=== PATIENT | female | born 1985 | race African-American/Black ===

== ENCOUNTER 2017-02-27 01:36 | Emergency (ER) | payer MEDICAID ==
[2017-02-27] MEDS ORDERED: KETOROLAC 30 MG/ML VIAL IVP ONE (01:58)
[2017-02-27] MEDS ORDERED: 0.9 % SODIUM CHLORIDE 1,000 ML BAG IV ONE (01:58)
[2017-02-27] MEDS ORDERED: MORPHINE SULFATE 5 MG/ML PFS IVP ONE (01:58)
--- NOTE | 2017-02-27 01:58 | Emergency Department Record ---
History of Present Illness - General Chief Complaint: Back Pain/Injury Stated Complaint: BACK PAIN Time Seen by Provider: 02/27/17 01:49 Source: Patient, Family Mode of Arrival: Ambulatory Limitations: No limitations - History of Present Illness Initial Comments: 32 yo female presents with back pain that started 2 days ago. The pain is now fairly constant. The pain started in the mid back and radiates around the front of the abdomen. It started night. She has some nausea but no vomiting. No diarrhea. She has some pain with deep inspiration. The pain wraps around the front of the abdomen. No fever. She has had this pain twice in the past before . One time was about 10 months ago after her daughter was born and then again about 2 weeks ago. She was seen at [facility] Wednesday in the morning. At [facility] she had extensive tests including labs and CT of the chest, abdomen and pelvis. Pertinent findings included Abdominal/ Pelvic CT with Cholelithiasis without evidence of gall bladder wall thickening. No other acute process, Chest CT: No PE or dissection. No acute abnormality. AST 174, ALT 161, (bili 0.9 and AlkPhos 114). CBC with Hgb 11.2, WBC 8.8. Lipase 42, Trop 0.03. MD Complaint: Back pain Onset/Timin -: Days(s) Similar Symptoms Previously: Yes Radiation: Abdomen Severity: Moderate Severity scale (1-10): 10 Quality: Aching Consistency: Constant Improves With: None Worsens With: Movement Context: Unknown Associated Symptoms: Denies other symptoms Treatments Prior to Arrival: NSAIDS, Other medications Treatment Prior to Arrival Comment:: 1200 mg motrin 0015, and flexeril about 0115 - Related Data Home Medications Medication Instructions Recorded Confirmed Last Taken Cyclobenzaprine HCl [Flexeril] 10 mg PO TID 02/27/17 02/27/17 02/26/17 Allergies Allergy/AdvReac Type Severity Reaction Status Date / Time No Known Drug Allergies Allergy Verified 10/27/15 04:06 Travel Screening - Travel/Exposure Within Last 30 Days Have you traveled within the last 30 days?: No - Travel/Exposure Within Last Year Have you traveled outside the [place] in the last year?: No - Additonal Travel Details Have you been exposed to anyone with a communicable illness?: No - Travel Symptoms Symptom Screening: None Review of Systems Constitutional: Denies: Chills, Fever, Malaise, Weakness Eyes: Denies: Eye discharge ENT: Denies: Congestion, Throat pain Respiratory: Denies: Cough, Dyspnea, Hemoptysis Cardiovascular: Reports: Chest pain (epigastric area). Denies: Palpitations, Syncope Endocrine: Denies: Fatigue Gastrointestinal: Reports: As per HPI, Abdominal pain, Nausea. Denies: Constipation, Diarrhea, Hematemesis, Hematochezia, Melena, Vomiting Genitourinary: Denies: Dysuria, Urgency Musculoskeletal: Reports: As per HPI, Back pain. Denies: Arthralgia Skin: Denies: Bruising, Change in color, Rash Neurological: Denies: Confusion, Headache, Weakness Psychiatric: Denies: Anxiety Hematological/Lymphatic: Denies: Blood Clots, Easy bleeding, Easy bruising, Swollen glands Past Medical History - SOCIAL HISTORY Smoking Status: Former smoker Alcohol Use: None Drug Use: None - RESPIRATORY Hx Respiratory Disorders: No - CARDIOVASCULAR Hx Cardio Disorders: No - NEURO Hx Neuro Disorders: No - GI Hx GI Disorders: No - Hx Genitourinary Disorders: No - ENDOCRINE Hx Endocrine Disorders: No - MUSCULOSKELETAL Hx Musculoskeletal Disorders: No - PSYCH Hx Psych Problems: Yes Hx Anxiety: Yes Hx Depression: Yes - HEMATOLOGY/ONCOLOGY Hx Hematology/Oncology Disorders: No Family Medical History Any Significant Family History?: No Physical Exam - General General Appearance: Alert, Oriented x3, Cooperative, No acute distress Limitations: No limitations - Head Head exam: Normal inspection - Eye Eye exam: Normal appearance, PERRL. negative: Conjunctival injection, Periorbital swelling, Scleral icterus - ENT ENT exam: Normal exam, Mucous membranes moist Ear exam: Normal external inspection Nasal Exam: Normal inspection Mouth exam: Normal external inspection Throat exam: Normal inspection. negative: Tonsillar erythema, Tonsillar exudate - Neck Neck exam: Normal inspection, Full ROM. negative: Lymphadenopathy, Tenderness - Respiratory Respiratory exam: Normal lung sounds bilaterally. negative: Respiratory distress - Cardiovascular Cardiovascular Exam: Regular rate, Normal rhythm, Normal heart sounds Peripheral Pulses: 2+: Radial (R), Radial (L) - GI/Abdominal GI/Abdominal exam: Soft, Tenderness (mild epigastric tenderness to palpation). negative: Distended - Rectal Rectal exam: Deferred - exam: Deferred - Extremities Extremities exam: Normal inspection, Full ROM, Normal capillary refill. negative: Pedal edema, Tenderness - Back Back exam: Reports: Normal inspection, Full ROM, Other (The back is normal on inspection and not tender to palpation). Denies: CVA tenderness (R), CVA tenderness (L), Muscle spasm, Paraspinal tenderness, Rash noted, Tenderness, Vertebral tenderness - Neurological Neurological exam: Alert, Normal gait, Oriented X3, Reflexes normal - Psychiatric Psychiatric exam: Normal affect, Normal mood - Skin Skin exam: Dry, Intact, Normal color, Warm Course Vital Signs 02/27/17 01:40 Temperature 97.5 F L Pulse Rate 67 Respiratory 20 Rate Blood Pressure 137/74 Pulse Ox 100 - Reevaluation(s) Reevaluation #1: [facility] Records reviewed. See HPI for details. 02/27/17 02:12 Reevaluation #2: Labs reviewed TBili 3.3 was 0.9 AST 268 was 174 ALT 327 was 161 Alk Phos 167 114 I discussed the results with the patient I discussed the elevation of the enzymes from her [place] Morning visit I informed her of the need for likely US and surgery consult I SUSY Elmore of [facility]. She accept the patient for likely US/Surgery consult 02/27/17 02:42 02/27/17 02:55 Medical Decision Making - Lab Data Result diagrams: 02/27/17 02:07 02/27/17 02:07 Disposition Disposition: Transfer Clinical Impression: Elevated liver enzymes Abdominal pain Qualifiers: Abdominal location: epigastric Qualified Code(s): R10.13 - Epigastric pain Cholelithiasis Qualifiers: Cholelithiasis location: other site Biliary obstruction: with biliary obstruction Qualified Code(s): K80.81 - Other cholelithiasis with obstruction [facility] and Surgery Consult Accepting Physician: Jodie Elmore Time Discussed w/Accepting Physician: 02:56 Forms: Patient Portal Access Time of Disposition: 02:56
[2017-02-27 02:14] LABS: BASO % 0.1 % (0-6); EOS % 0.3 % (0-6); HEMATOCRIT 35.2 % (35.0-47.0); HEMOGLOBIN 11.1 gm/dl (11.6-16.0); LYMPH % 7.8 % (16-45); MEAN CELL VOLUME 77.5 fl (81-97); MEAN CORPUSCULAR HEMOGLOBIN 24.4 pg (27-33); MEAN CORPUSCULAR HGB CONC 31.5 g/dl (32-36); MEAN PLATELET VOLUME 11.2 fl (7.4-10.4); MONO % 5.5 % (0-9); PLATELET COUNT 228 K/uL (130-400); RED BLOOD COUNT 4.54 M/uL (3.80-5.40); RED CELL DISTRIBUTION WIDTH 14.7 % (11.5-14.5); WHITE BLOOD COUNT W/O DIFF 9.3 K/uL (4.2-12.2)
[2017-02-27 02:30] LABS: ALB/GLOB RATIO 1.2 (1.1-1.8); ALBUMIN 4.6 gm/dL (3.5-5.0); ALKALINE PHOSPHATASE 167 U/L (38-126); ALT/SGPT 327 U/L (9-52); ANION GAP 11.3 (7-16); AST/SGOT 268 U/L (14-36); BILIRUBIN,TOTAL 3.31 mg/dL (0.2-1.3); BLOOD UREA NITROGEN 7 mg/dL (7-17); CARBON DIOXIDE 27.7 mmol/L (22-30); CREATININE 0.7 mg/dL (0.52-1.04); EST GLOMERULAR FILTRATION RATE > 60 ml/min; GLUCOSE,RANDOM 125 mg/dL (70-110); LIPASE 143 U/L (23-300); TOTAL PROTEIN 8.3 gm/dL (6.3-8.2)
[2017-02-27 03:15] LABS: URINE APPEARANCE CLEAR; URINE BILIRUBIN MODERATE (NEGATIVE); URINE BLOOD NEGATIVE (NEGATIVE); URINE COLOR YELLOW; URINE GLUCOSE (UA) NEGATIVE (NEGATIVE); URINE KETONE NEGATIVE (NEGATIVE); URINE LEUKOCYTE ESTERASE TRACE (NEGATIVE); URINE NITRITE NEGATIVE (NEGATIVE); URINE PROTEIN NEGATIVE (NEGATIVE)
[2017-02-27 03:27] LABS: URINE BACTERIA FEW
[2017-02-27 03:30] LABS: HCG,QUALITATIVE URINE NEGATIVE (NEGATIVE)
== END 2017-02-27 04:30 | disposition short-term general hospital (02) ==
LOC: ER 01:36
DX: K80.81 Other cholelithiasis with obstruction (principal); R74.8 Abnormal levels of other serum enzymes; R11.0 Nausea; R10.13 Epigastric pain
CPT/HCPCS: 99285 ×2; 96374; 96375; 83690; 80053; 81001; 81025; 85027; J1885; J2270; J7030